=== PATIENT | male | born 1955 | race Caucasian/White ===

== ENCOUNTER 2016-12-11 12:27 | Emergency (ER) | payer SELFPAY ==
[~2016-12-11] VITALS: Ht 172.7 cm; Wt 77.0 kg
[2016-12-11 12:29] VITALS: BP 178/99; PULSE 84; RESP 16; TEMP 98.3; O2SAT 98
--- NOTE | 2016-12-11 13:04 | PD ---
HPI Chief Complaint: Skin Problem Time Seen by Provider: 12:54 Travel History International Travel<30 days: No Contact w/Intl Traveler<30days: No Traveled to known affect area: No History of Present Illness HPI 61-year-old male presents the emergency department with questionable spider bite to the right lateral thigh. Patient states it's been present for the past several days. He's had increasing pain, swelling, and erythema. He's had no drainage from the area. He denies fever, chills, or other symptoms. Pain is about a 6 out of 10. Swelling is worse today. He has no known drug allergies. [facility] Social History Alcohol Use: No Tobacco Use: Yes Allergies-Medications (Allergen,Severity, Reaction): Coded Allergies: No Known Allergies (Unverified , 12/11/16) Reported Meds & Prescriptions Reported Meds & Active Scripts Active No Active Prescriptions or Reported Medications Review of Systems Except as stated in HPI: all other systems reviewed are Neg General / Constitutional: No: Fever Eyes: No: Visual changes HENT: No: Headaches Cardiovascular: No: Chest Pain or Discomfort Respiratory: No: Shortness of Breath Gastrointestinal: No: Abdominal Pain Genitourinary: No: Dysuria Musculoskeletal: No: Pain Skin: Positive Lesions (see history of present illness), No Rash Neurologic: No: Weakness Psychiatric: No: Depression Endocrine: No: Polydipsia Hematologic/Lymphatic: No: Easy Bruising Physical Exam Narrative GENERAL: Patient is uncomfortable but in no acute distress. SKIN: Warm and dry. Normal color. Normal turgor. Patient has a single small erythematous tender indurated lesion to the right lateral thigh with middle pointing and erythematous around approximately 3 cm in diameter. No streaking is noted. HEAD: Atraumatic. Normocephalic. EYES: Pupils equal and round. No scleral icterus. No injection or drainage. ENT: No nasal bleeding or discharge. Mucous membranes pink and moist. Pharynx is clear. Airway is patent. NECK: Trachea midline. Supple and nontender. CARDIOVASCULAR: Regular rate and rhythm. GASTROINTESTINAL: Abdomen soft, non-tender, nondistended. Hepatic and splenic margins not palpable. MUSCULOSKELETAL: Extremities without clubbing, cyanosis, or edema. No obvious deformities. NEUROLOGICAL: Awake and alert. No obvious cranial nerve deficits. Motor grossly within normal limits. Five out of 5 muscle strength in the arms and legs. Normal speech. PSYCHIATRIC: Appropriate mood and affect; insight and judgment normal. Data Data Last Documented VS Vital Signs Date Time Temp Pulse Resp B/P Pulse Ox O2 Delivery O2 Flow Rate FiO2 12/11/16 12:29 98.3 84 16 178/99 98 Orders Wound Culture And Gram Stain (12/11/16 13:04) MDM Medical Decision Making Medical Screen Exam Complete: Yes Emergency Medical Condition: Yes Differential Diagnosis Insect bite. Cellulitis. Abscess. MRSA. Narrative Course Patient is medically stable at time of exam Lesion was unroofed with a #11 blade small amount of pus removed with culture obtained. No deep abscess was appreciated. Patient will be treated with Bactrim DS twice a day 7 days as well as Keflex 500 mg 3 times a day 7 days per Patient also to apply Bactroban twice daily after washing the wound with soap and water. Patient is given ibuprofen 600 mg 4 times a day when necessary pain #40. Patient follow up if symptoms do not improve or worsen as discussed. Diagnosis Primary Impression: Insect bite Qualified Code: W57.XXXA - Insect bite, initial encounter Additional Impression: Cellulitis Qualified Code: L03.115 - Cellulitis of right lower extremity Patient Instructions: Cellulitis (DC), General Instructions, Insect Bite or Sting (ED), MRSA (Methicillin Resistant Staphylococcus Aureus) (ED) Additional Instructions: Lesion was unroofed with a #11 blade small amount of pus removed with culture obtained. No deep abscess was appreciated. Patient will be treated with Bactrim DS twice a day 7 days as well as Keflex 500 mg 3 times a day 7 days per Patient also to apply Bactroban twice daily after washing the wound with soap and water. Patient is given ibuprofen 600 mg 4 times a day when necessary pain #40. Patient follow up if symptoms do not improve or worsen as discussed. Med/Other Pt SpecificInfo: Prescription(s) given, Wound Care Scripts Ibuprofen 600 Mg [id number] Mg PO Q6H PRN (Pain/Inflammation) #40 TAB Prov:Alondra Wynn MD 12/11/16 Cephalexin 500 Mg [id number] Mg PO Q8H #21 CAP Prov:Alondra Wynn MD 12/11/16 Mupirocin Topical (Bactroban Topical)22 Gm Cream1 Applic TOPICAL BID #1 TUBE Prov:Alondra Wynn MD 12/11/16 Sulfamethoxazole-Trimethoprim (Bactrim DS)800-160 Mg Tab1 Tab PO BID #14 TAB Prov:Alondra Wynn MD 12/11/16 Disposition: 01 DISCHARGE HOME Condition: Stable Saw Younger Dec 11, 2016 13:04
[2016-12-11] MEDS ORDERED: MUPI2%T TOPICAL (13:06)
[2016-12-11] MEDS ORDERED: BACT800T5 PO (13:06)
[2016-12-11] MEDS ORDERED: CEPH500C PO (13:06)
[2016-12-11] MEDS ORDERED: IBUP-232 PO (13:06)
== END 2016-12-11 13:20 | disposition home or self-care (01) ==
LOC: NEPK 12:27
DX: L03.115 Cellulitis of right lower limb (principal); B95.62 Methicillin resistant Staphylococcus aureus infection as the cause of diseases classified elsewhere; W57.XXXA Bitten or stung by nonvenomous insect and other nonvenomous arthropods, initial encounter; Z72.0 Tobacco use
CPT/HCPCS: 10140; 86403; 87070; 87186; 87205